=== PATIENT | male | born 1985 | race African-American/Black ===

== ENCOUNTER 2020-10-03 16:07 | Emergency (ER) | payer BC ==
[2020-10-04 12:36] LABS: SARS-CoV-2 PCR by NAA Not Detected (NotDetected)
== END 2020-10-03 16:59 | disposition home or self-care (01) ==
LOC: ERS 16:07
DX: J02.9 Acute pharyngitis, unspecified (principal); J34.89 Other specified disorders of nose and nasal sinuses; R05 Cough; R50.9 Fever, unspecified; R06.02 Shortness of breath; I10 Essential (primary) hypertension; Z20.822 Contact with and (suspected) exposure to COVID-19
CPT/HCPCS: 99283; U0003; U0005

== ENCOUNTER 2023-02-18 09:47 | Emergency (ER) | payer SELFPAY, OTHER ==
[2023-02-18] MEDS ORDERED: Proparacaine 0.5% Opth 15 ML BOT ONE (09:59)
[2023-02-18] MEDS ORDERED: Fluorescein Opthalmic Strip ONE (09:59)
== END 2023-02-18 12:08 | disposition home or self-care (01) ==
LOC: ERS 09:47
DX: T26.61XA Corrosion of cornea and conjunctival sac, right eye, initial encounter (principal); I10 Essential (primary) hypertension
CPT/HCPCS: 99283

== ENCOUNTER 2025-02-14 16:14 | Emergency (ER) | payer OTHER ==
[2025-02-14 18:17] LABS: #Basophils 0.04 10x3/uL (0.0-0.2); #Eosinophils Less than 0.03 10x3/uL (0.0-0.7); #Monocytes 0.74 10x3/uL (0.11-0.59); #Neutrophils 6.42 10x3/uL (1.40-6.50); %Basophils 0.4 % (0.0-1.0); %Eosinophils 0.2 % (0.0-10.0); %Lymphocytes 26.9 % (21.0-51.0); %Monocytes 7.5 % (0.0-10.0); %Neutrophils 64.7 % (42.0-75.0); Hematocrit 43.4 % (42.0-52.0); Hemoglobin 14.3 g/dL (14.0-18.0); Mean Corpuscular Hemoglobin 28.7 pg (27.0-31.0); Mean Corpuscular Volume 87.0 fL (78.0-98.0); Platelet Count 332 10x3/uL (130-400); Red Blood Cell (RBC) Count 4.99 mill/uL (4.70-6.10); White Blood Cell (WBC) Count 9.92 10x3/uL (4.8-10.8)
[2025-02-14 18:36] LABS: ALT (SGPT) Less than 7 U/L (Less than 45); AST (SGOT) 23 U/L (11-34); Albumin 4.6 g/dL (3.1-4.5); Alkaline Phosphatase 90 U/L (40-110); Anion Gap 14 mmol/L (10-20); BUN (Urea Nitrogen) 12 mg/dL (8.9-20.6); Bilirubin, Total 0.3 mg/dL (0.3-1.2); Calc. Creatinine Clearance 0 mL/min (70-130); Calcium 9.5 mg/dL (7.8-10.44); Carbon Dioxide 28 mmol/L (22-29); Chloride 105 mmol/L (98-107); Globulin 3.3 g/dL (2.4-3.5); Glucose 115 mg/dL (70-105); Potassium 3.5 mmol/L (3.5-5.1); Sodium 143 mmol/L (136-145)
== END 2025-02-14 18:45 | disposition home or self-care (01) ==
LOC: ERS 16:14
DX: R07.81 Pleurodynia (principal); I10 Essential (primary) hypertension
CPT/HCPCS: 71045; 80053; 84484; 85025; 85379; 93005